=== PATIENT | female | born 2000 | race Hispanic/Latino ===

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

== ENCOUNTER → 2023-09-13 | Emergency (ER) | payer SELFPAY ==
[~2023-09-13] MED LIST: CEFTRIAXONE 1000 MG/VIAL ONE; MORPHINE 4 MG/ML SYR ONE; NA CHLORIDE 0.9% 1,000 ML ONE; ONDANSETRON 4 MG/2 ML VIAL ONE
[2023-09-13 19:09] LABS: Specific Gravity 1.016 (1.005-1.030)
[2023-09-13 19:12] LABS: Absolute Lymphocytes (CBC) 3.8 K/uL (0.7-4.9); Hematocrit 40.7 % (36.0-45.0); Lymphocytes % 28.6 % (15.3-44.8); MCV 91.5 fL (80-100); MPV 7.5 fL (7.6-11.3); Platelets 356 thou/uL (152-406); RBC Red Blood Cell Count 4.45 M/uL (3.86-4.86)
[2023-09-13 19:17] LABS: Albumin 3.3 g/dL (3.4-5.0); Bilirubin Total 0.3 mg/dL (0.2-1.0); Potassium 3.8 mEq/L (3.5-5.1); Specific Gravity 1.016 (1.005-1.030); Urine Bacteria 20-50 /HPF (<20); Urine Bilirubin NEGATIVE (Negative); Urine Blood 1+ (Negative); Urine Clarity Turbid (Clear); Urine Color Light-Yellow (Yellow); Urine Glucose NEGATIVE (Negative); Urine Mucus Slight /HPF (None Seen); Urine Protein NEGATIVE (Negative); Urine Urobilinogen Normal (Normal); Urine pH 6.5 (5.0-7.0)
--- NOTE | 2023-09-13 20:49 | RAD REPORT ---
EXAM DESCRIPTION: CT - Abdomen Pelvis W Contrast - 09/13/2023 7:51 pm CLINICAL HISTORY: RLQ;Abd pain COMPARISON: Chest Single View dated 03/30/2020 TECHNIQUE: Thin cut axial CT imaging of the abdomen and pelvis was performed following intravenous a dministration of 100 mL Isovue 300. Multiplanar reformats were generated and reviewed. All CT scans are performed using dose optimization technique as appropriate and may include automated exposure control or mA/KV adjustment according to patient size. FINDINGS: Confluent peripheral left lower lobe airspace opacities. The liver, spleen, adrenal glands, and pancreas show no suspicious findings. Gallbladder and biliary tree are also without suspicious finding. Symmetric renal function is seen with no hydronephrosis or suspicious renal mass. No dilated bowel loops or bowel wall thickening. Appendix is unremarkable. Interposition of the colon anterior to the liver. No free air, free fluid or inflammatory stranding. No hernia, mass or bulky l ymphadenopathy. The urinary bladder is without significant finding. No suspicious bony findings. IMPRESSION: Some confluent peripheral left lower lobe airspace opacities, concerning for pneumonia. No acute intra-abdominal process.
--- NOTE | 2023-09-13 20:56 | ER ---
Nurse's Notes [facility] Name: Bernie Lambert Age: 23 yrs Sex: Female : 2000 Arrival Date: 09/13/2023 Time: 17:37 Bed 5 Private MD: Diagnosis: UTI/ Urinary tract infection, site not specified;Pneumonia, unspecified organism;Constipation Presentation: 09/13 17:58 Chief complaint: Patient states: R sided abdominal pain since Sunday evening. ll1 Coronavirus screen: Vaccine status: Patient reports receiving the 2nd dose of the covid vaccine. Client denies travel out of the [place] in the last 14 days. At this time, the client does not indicate any symptoms associated with coronavirus-19. Ebola Screen: Patient denies travel to an Ebola-affected area in the 21 days before illness onset. Initial Sepsis Screen: Does the patient meet any 2 criteria? No. Patient's initial sepsis screen is negative. Does the patient have a suspected source of infection? Yes: Acute abdominal pain. Risk Assessment: Do you want to hurt yourself or someone else? Patient reports no desire to harm self or others. Onset of symptoms was September 11, 2023. 17:58 Method Of Arrival: Ambulatory ll1 17:58 Acuity: NENA 3 ll1 Triage Assessment: 17:59 General: Appears uncomfortable, Behavior is calm, cooperative, appropriate for age. ll1 Pain: Complains of pain in R abdomen Pain currently is 8 out of 10 on a pain scale. Quality of pain is described as sharp, throbbing, Pain began 2-3 days ago. GI: Reports lower abdominal pain, upper abdominal pain. Historical: - Allergies: 17:57 No Known Allergies; ll1 - PMHx: 17:57 None; ll1 - PSHx: 17:57 gastroschesis; ll1 - Immunization history:: Adult Immunizations up to date. - Social history:: Smoking status: Patient denies any tobacco usage or history of. Screenin:53 [facility] ED Fall Risk Assessment (Adult) History of falling in the last 3 months, kc6 including since admission No falls in past 3 months (0 pts) Confusion or Disorientation No (0 pts) Intoxicated or Sedated No (0 pts) Impaired Gait No (0 pts) Mobility Assist Device Used No (0 pt) Altered Elimination No (0 pt) Score/Fall Risk Level 0 - 2 = Low Risk. Abuse screen: Denies threats or abuse. Denies injuries from another. Nutritional screening: No deficits noted. Tuberculosis screening: No symptoms or risk factors identified. Assessment: 18:36 Reassessment: No changes from previously documented assessment. Patient and/or family ll1 updated on plan of care and expected duration. Pain level reassessed. 18:54 General: Appears in no apparent distress. uncomfortable, well groomed, well developed, kc6 Behavior is calm, cooperative, appropriate for age. Pain: Complains of pain in right upper quadrant and right lower quadrant. Neuro: Level of Consciousness is awake, alert, obeys commands, Oriented to person, place, time, situation, Appropriate for age. Cardiovascular: Capillary refill < 3 seconds. Respiratory: Airway is patent Trachea midline Respiratory effort is even, unlabored, Respiratory pattern is regular, symmetrical. GI: Abdomen is flat, non-distended, Bowel sounds present X 4 quads. Abd is soft X 4 quads Abdomen is tender to palpation in right upper quadrant and right lower quadrant Reports lower abdominal pain, upper abdominal pain. : No signs and/or symptoms were reported regarding the genitourinary system. EENT: No signs and/or symptoms were reported regarding the EENT system. Derm: No signs and/or symptoms reported regarding the dermatologic system. Skin is intact, is healthy with good turgor, Skin is pink, warm \T\ dry. Musculoskeletal: No signs and/or symptoms reported regarding the musculoskeletal system. Circulation, motion, and sensation intact. Capillary refill < 3 seconds, Range of motion: intact in all extremities. 20:16 Reassessment: Patient appears in no apparent distress at this time. Patient and/or km8 family updated on plan of care and expected duration. Pain level reassessed. Patient is alert, oriented x 3, equal unlabored respirations, skin warm/dry/pink. Patient states symptoms have improved. General: Appears in no apparent distress. comfortable, Behavior is calm, cooperative, appropriate for age. Pain: Complains of pain in abdomen Pain currently is 6 out of 10 on a pain scale. Neuro: Level of Consciousness is awake, alert, obeys commands, Oriented to person, place, time, situation. Cardiovascular: Denies chest pain, shortness of breath, Capillary refill < 3 seconds Patient's skin is warm and dry. Respiratory: Airway is patent Respiratory effort is even, unlabored, Respiratory pattern is regular, symmetrical. Vital Signs: 17:58 BP 124 / 92; Pulse 80; Resp 17; Temp 99; Pulse Ox 100% ; Weight 88.45 kg; Height 5 ft. ll1 5 in. ; Pain 8/10; 19:00 BP 107 / 49; Pulse 69; Resp 16; Pulse Ox 100% on R/A; km8 19:30 BP 95 / 58; Pulse 70; Resp 16; Pulse Ox 100% on R/A; km8 20:00 BP 108 / 81; Pulse 75; Resp 16; Pulse Ox 99% on R/A; km8 20:16 Pain 6/10; km8 20:30 BP 126 / 92; Pulse 73; Resp 16; Pulse Ox 99% on R/A; km8 21:00 BP 136 / 45; Pulse 79; Resp 16; Pulse Ox 100% on R/A; km8 17:58 Body Mass Index 32.45 (88.45 kg, 165.1 cm) ll1 17:58 Pain Scale: Adult ll1 20:16 Pain Scale: Adult km8 ED Course: 17:38 Patient arrived in ED. rg4 17:39 Samina Christianson PA-C is PHCP. sb4 17:39 Jeanmarie Aguero MD is Attending Physician. sb4 17:43 Arm band placed on. ll1 17:59 Triage completed. ll1 18:36 Patient placed in an exam room, on a stretcher. ll1 18:53 Dilma Portillo RN is Primary Nurse. kc6 18:53 Inserted saline lock: 20 gauge in right wrist, using aseptic technique. Blood kc6 collected. Patient maintains SpO2 saturation greater than 95% on room air. 18:54 Patient has correct armband on for positive identification. Bed in low position. Call kc6 light in reach. Side rails up X 1. Adult w/ patient. Client placed on continuous cardiac and pulse oximetry monitoring. NIBP monitoring applied. 19:06 Report given to CLARA Escobedo \T\ CLARA Coppola. kc6 19:09 Primary Nurse role handed off by Dilma Portillo RN as6 19:53 CT Abd/Pelvis - IV Contrast Only In Process Unspecified. EDMS 21:21 Provided Education on: d/c teaching. km8 21:21 No provider procedures requiring assistance completed. IV discontinued, intact, km8 bleeding controlled, No redness/swelling at site. Pressure dressing applied. Administered Medications: 18:53 Drug: NS 0.9% IV 1000 ml IV at 1 bolus Per protocol; 1000 mL bolus Route: IV; Rate: 1 kc6 bolus; Site: right wrist; 20:15 Follow up: IV Status: Completed infusion; IV Intake: 1000ml km8 18:53 Drug: Ondansetron IVP 4 mg IVP once; over 2 minutes Route: IVP; Site: right wrist; kc6 20:16 Follow up: Response: No adverse reaction; Nausea is decreased km8 18:53 Drug: morphine IVP or IV 4 mg IVP once over 4 mins Route: IVP; Infused Over: 4 mins; kc6 Site: right wrist; 20:16 Follow up: Pain 6/10 Adult; Response: Pain is decreased; RASS: Alert and Calm (0) km8 21:09 Drug: Rocephin IV 1 grams IV at calculated rate once; Given slow IV push per pharmacy km8 instructions Route: IV; Rate: calculated rate; Site: right wrist; 21:20 Follow up: IV Status: Completed infusion km8 Medication: 21:21 VIS not applicable for this client. km8 Intake: 20:15 IV: 1000ml; Total: 1000ml. km8 Outcome: 20:56 Discharge ordered by MD. sb4 21:31 Discharged to home ambulatory, with family, km8 21:31 Condition: good 21:31 Discharge instructions given to patient, Instructed on discharge instructions, follow up and referral plans. medication usage, Demonstrated understanding of instructions, follow-up care, medications, Prescriptions given X 2, 21:32 Patient left the ED. km8 Signatures: Dispatcher [employer] EDMercy Abdalla Lynsay RN RN ll1 Kin Wilkins RN RN [email or web address] Dilma Portillo RN RN [id number] Samina Christianson, PA-C PAJasonC Fanny Samuels RN RN km8
--- NOTE | 2023-09-13 20:56 | EDPHYS ---
Physician Documentation [facility] Name: Bernie Lambert Age: 23 yrs Sex: Female : 2000 Arrival Date: 09/13/2023 Time: 17:37 Bed 5 Private MD: ED Physician Jeanmarie Aguero HPI: 09/13 18:59 This 23 yrs old Female presents to ER via Ambulatory with complaints of sb4 Abdominal Pain. 18:59 The patient presents with abdominal pain right lower quadrant. Onset: The sb4 symptoms/episode began/occurred 2 day(s) ago. The symptoms do not radiate. Associated signs and symptoms: none. The symptoms are described as sharp, stabbing. Modifying factors: The symptoms are alleviated by nothing, the symptoms are aggravated by pressure, touching the area. The patient has not experienced similar symptoms in the past. The patient has not recently seen a physician. Historical: - Allergies: 17:57 No Known Allergies; ll1 - PMHx: 17:57 None; ll1 - PSHx: 17:57 gastroschesis; ll1 - Immunization history:: Adult Immunizations up to date. - Social history:: Smoking status: Patient denies any tobacco usage or history of. ROS: 18:59 Constitutional: Negative for fever, chills, and weight loss, sb4 18:59 Abdomen/GI: Positive for abdominal pain, 18:59 All other systems are negative, Exam: 18:59 Constitutional: This is a well developed, well nourished patient who is awake, alert, sb4 and in no acute distress. Head/Face: Normocephalic, atraumatic. Eyes: Extra-ocular motions intact. Periorbital areas with no swelling, redness, or edema. ENT: Mucous membranes moist. Cardiovascular: Regular rate and rhythm with a normal S1 and S2. Respiratory: Lungs have equal breath sounds bilaterally, clear to auscultation and percussion. No rales, rhonchi or wheezes noted. No increased work of breathing, no retractions or nasal flaring. Skin: Warm, dry with normal turgor. Normal color with no rashes, no lesions, and no evidence of cellulitis. MS/ Extremity: Pulses equal, no cyanosis. Neurovascular intact. Full, normal range of motion. 18:59 Abdomen/GI: Inspection: abdomen appears normal, Bowel sounds: normal, Palpation: soft, in all quadrants, moderate abdominal tenderness, in the right lower quadrant, rebound tenderness, is appreciated in the right lower quadrant, involuntary guarding, is elicited in the right lower quadrant, Vital Signs: 17:58 BP 124 / 92; Pulse 80; Resp 17; Temp 99; Pulse Ox 100% ; Weight 88.45 kg; Height 5 ft. ll1 5 in. ; Pain 8/10; 19:00 BP 107 / 49; Pulse 69; Resp 16; Pulse Ox 100% on R/A; km8 19:30 BP 95 / 58; Pulse 70; Resp 16; Pulse Ox 100% on R/A; km8 20:00 BP 108 / 81; Pulse 75; Resp 16; Pulse Ox 99% on R/A; km8 20:16 Pain 6/10; km8 20:30 BP 126 / 92; Pulse 73; Resp 16; Pulse Ox 99% on R/A; km8 21:00 BP 136 / 45; Pulse 79; Resp 16; Pulse Ox 100% on R/A; km8 17:58 Body Mass Index 32.45 (88.45 kg, 165.1 cm) ll1 17:58 Pain Scale: Adult ll1 20:16 Pain Scale: Adult km8 MDM: 17:51 Patient medically screened. sb4 18:59 Differential diagnosis: appendicitis, cholecystitis, Cholelithiasis, diverticulitis, sb4 Dysmenorrhea, Ectopic , non-specific abd pain, Peptic Ulcer Disease, Pyelonephritis, Ureterolithiasis, urinary tract infection. 20:55 Data reviewed: vital signs, nurses notes, lab test result(s), radiologic studies, I sb4 have discussed the patient's presentation/case with the attending Emergency Department Physician; and as a result, I will discharge patient. Historians other than the Patient: Parent: MOTHER. Counseling: I had a detailed discussion with the patient and/or guardian regarding the historical points, exam findings, and any diagnostic results supporting the discharge/admit diagnosis, lab results, radiology results, to return to the emergency department if symptoms worsen or persist or if there are any questions or concerns that arise at home. 09/13 18:00 Order name: CBC with Diff; Complete Time: : sb4 09/13 18:00 Order name: CMP; Complete Time: 19:18 sb4 09/13 18:00 Order name: Lipase; Complete Time: 19:18 sb4 09/13 18:00 Order name: Test, Urine; Complete Time: 19:10 sb4 09/13 18:00 Order name: Urinalysis w/ reflexes; Complete Time: 19:18 sb4 09/13 19:20 Order name: Urine Culture EDIN 09/13 18:00 Order name: CT Abd/Pelvis - IV Contrast Only; Complete Time: 20:51 sb4 09/13 18:00 Order name: IV Saline Lock; Complete Time: 18:53 sb4 09/13 18:00 Order name: Labs collected and sent; Complete Time: 18:53 sb4 Administered Medications: 18:53 Drug: NS 0.9% IV 1000 ml IV at 1 bolus Per protocol; 1000 mL bolus Route: IV; Rate: 1 kc6 bolus; Site: right wrist; 20:15 Follow up: IV Status: Completed infusion; IV Intake: 1000ml [facility] 18:53 Drug: Ondansetron IVP 4 mg IVP once; over 2 minutes Route: IVP; Site: right wrist; kc6 20:16 Follow up: Response: No adverse reaction; Nausea is decreased [facility] 18:53 Drug: morphine IVP or IV 4 mg IVP once over 4 mins Route: IVP; Infused Over: 4 mins; 6 Site: right wrist; 20:16 Follow up: Pain 6/10 Adult; Response: Pain is decreased; RASS: Alert and Calm (0) [facility] 21:09 Drug: Rocephin IV 1 grams IV at calculated rate once; Given slow IV push per pharmacy km8 instructions Route: IV; Rate: calculated rate; Site: right wrist; 21:20 Follow up: IV Status: Completed infusion 8 Disposition: 19:21 Co-signature as Attending Physician, Jeanmarie Aguero MD I reviewed the patient's care rt provided by the Advanced Practice Provider and agree with the diagnosis and treatment plan. Disposition Summary: 09/13/23 20:56 Discharge Ordered Notes: Location: Home sb4 Problem: new sb4 Symptoms: have improved sb4 Condition: Stable sb4 Diagnosis - UTI/ Urinary tract infection, site not specified sb4 - Pneumonia, unspecified organism sb4 - Constipation sb4 Followup: sb4 - With: Emergency Department - When: As needed - Reason: Trouble breathing, Worsening of condition Discharge Instructions: - Discharge Summary Sheet sb4 - Community-Acquired Pneumonia, Adult sb4 - Constipation, Adult, [id number] sb4 - Urinary Tract Infection, Adult, [id number] sb4 Forms: - Medication Reconciliation Form sb4 - Thank You Letter sb4 - Antibiotic Education sb4 - Prescription Opioid Use sb4 - Patient Portal Instructions sb4 - Leadership Thank You Letter sb4 Prescriptions: - azithromycin 250 mg Oral tablet - take 1 dose pack ORAL route as directed on dose pack For 250 mg dose pack: take sb4 500 mg today (day 1), then 250 mg for 4 days (days 2-5); 1 Pack; Refills: 0, Product Selection Permitted - cefpodoxime 100 mg Oral Tablet - take 1 tablet ORAL route every 12 hours for 10 days take with food; 20 tablet; sb4 Refills: 0, Product Selection Permitted Signatures: Dispatcher [employer] Brendan Carmona RN RN ll1 Dilma Portillo RN RN kc6 Samina Christianson, PAAnnmarie PAAnnmarie sb4 Jeanmarie Aguero MD MD rt Fanny Aguilar RN RN km8
[2023-09-14 00:50] VITALS: TEMP 99; O2SAT 100
[2023-09-14 00:56] VITALS: BP 136/45
== END ==
LOC: ER 17:37
DX: N39.0 Urinary tract infection, site not specified (principal); K59.00 Constipation, unspecified; J18.9 Pneumonia, unspecified organism
CPT/HCPCS: 36415; 74177; 80053; 81001; 81025; 83690; 85025; 87077; 87086; 87088; 87186; 96361; 96374; 96375; 99285; J0696; J2405; J7030; Q9967

== ENCOUNTER 2024-12-18 13:03 | Emergency (ER) | payer BC ==
[2024-12-18] MEDS ORDERED: NA CHLORIDE 0.9% 1,000 ML ONE (14:03)
[2024-12-18] MEDS ORDERED: ACETAMINOPHEN 500 MG TAB ONE (14:03)
--- NOTE | 2024-12-18 14:24 | RAD REPORT ---
EXAM:Extremity Venous Uni Ltd HISTORY: Right leg pain TECHNIQUE: Sonographic evaluation right lower extremity performed.Grayscale, color and spectral fco sis performed on all vessels COMPARISON: None. FINDINGS: Right common femoral, superficial femoral, greater saphenous, popliteal and posterior tibial veins ar e compressible and demonstrate augmentation. Doppler demonstrates good flow. IMPRESSION: No evidence of deep venous thrombosis involving the right lower extremity.
[2024-12-18 14:25] LABS: Absolute Eosinophils 0.3 K/uL (0-0.5); Absolute Lymphocytes (CBC) 2.2 K/uL (0.7-4.9); Absolute Monocytes 0.8 K/uL (0.1-1.3); Absolute Neutrophil 8.3 K/uL (1.8-8.0); Basophils % 0.3 % (0-1.3); Eosinophils % 2.4 % (0-4.4); Hematocrit 38.3 % (36.0-45.0); Lymphocytes % 18.7 % (15.3-44.8); MCH 30.6 pg (27.0-35.0); MCHC 34.1 g/dL (32.0-36.0); MCV 89.7 fL (80-100); MPV 8.2 fL (7.6-11.3); Monocytes % 6.5 % (3.3-12.3); Neutrophils % 72.1 % (41.7-73.7); Platelets 303 thou/uL (152-406); RBC Red Blood Cell Count 4.27 M/uL (3.86-4.86); Red Cell Distribution Width 13.4 % (12.1-15.2)
[2024-12-18 14:26] LABS: Specific Gravity 1.023 (1.005-1.030); Urine Bilirubin NEGATIVE (Negative); Urine Blood Negative (Negative); Urine Clarity Clear (Clear); Urine Color Light-Yellow (Yellow); Urine Glucose NEGATIVE (Negative); Urine Ketones NEGATIVE (Negative); Urine Microscopic Reflex YN NO UMIC; Urine Nitrite NEGATIVE (Negative); Urine Protein NEGATIVE (Negative); Urine Urobilinogen Normal (Normal)
[2024-12-18 14:28] LABS: Specific Gravity 1.023 (1.005-1.030)
--- NOTE | 2024-12-18 14:29 | RAD REPORT ---
EXAM:OB Limited CLINICAL HISTORY: with abdominal pain TECHNIQUE: Limited OB ultrasound performed FINDINGS: Single live intrauterine in transverse presentation. Cardiac activity 152 bpm. Cervix 4.5 cm. Normal amniotic fluid. The placenta is anterior. No subchorionic/retroplacental bleed. Femur length 3.3 cm 20 weeks 3 days IMPRESSION: Single live intrauterine in transverse presentation. No significant abnormality seen on this limited examination. If a survey is desired it can be performed on a nonemergent basis.
[2024-12-18] MEDS ORDERED: DICYCLOMINE HCL 20 MG/2 ML AMP IM ONE (14:45)
[2024-12-18 15:14] LABS: Albumin 3.3 g/dL (3.4-5.0); Albumin/Globulin Ratio 0.7 (1.1-1.8); Anion Gap 10.7 mEq/L (5.0-15.0); Bilirubin Total 0.3 mg/dL (0.2-1.0); Globulin 4.6 g/dL (2.3-3.5); Potassium 3.7 mEq/L (3.5-5.1); Protein, Total 7.9 g/dL (6.4-8.2)
--- NOTE | 2024-12-18 17:45 | RAD REPORT ---
EXAMINATION: MRI PELVIS WITHOUT FEMALE CLINICAL INDICATION: Female 24 years RLQ TECHNIQUE: Limited sequence imaging of the pelvis was performed without gadolinium-based IV contrast to evaluate for acute appendicitis in a patient. Unless otherwise specified, incidental findings do not require dedicated imaging follow-up. [id number]. COMPARISON: No prior exam. FINDINGS: Limited exam to evaluate for appendicitis. Note that this exam does not evaluate the fetus. The cecum is present in the right upper quadrant. The patient has a redundant colon. The appendix is visualized and within normal limits. Trace pelvic free fluid is identified. The bowel is nondilated. IMPRESSION: No evidence of appendicitis. Note that the patient has a redundant colon with cecum and appendix in t he right upper quadrant.
--- NOTE | 2024-12-18 18:13 | EDPHYS ---
Physician Documentation [facility] Name: Bernie Lambert Age: 24 yrs Sex: Female : 2000 Arrival Date: 12/18/2024 Time: 13:03 Bed 23 Private MD: ED Physician Yong Olmstead HPI: 12/18 13:20 This 24 yrs old Female presents to ER via Ambulatory with complaints of 18 wks cp , Abdominal Pain. 13:20 The patient presents with abdominal pain right lower quadrant, right groin. cp 13:20 Onset: The symptoms/episode began/occurred 1 week(s) ago. The symptoms radiate to right cp leg. Associated signs and symptoms: Pertinent negatives: constipation, diarrhea, fever, vomiting, injury, vaginal bleeding. The symptoms are described as constant. Severity of pain: in the emergency department the pain is unchanged despite home interventions. Patient reports she is approximately 18 weeks . NET TECHNICAL ARCHITECT: 14:15 1, Full Term 0, Premature 0, 0, Living 0, Verified db Historical: - Allergies: 13:19 No Known Allergies; ll1 - PMHx: 13:19 None; ll1 - PSHx: 13:10 gastroschesis; ll1 - Immunization history:: Adult Immunizations up to date. - Infectious Disease History:: Denies. - Social history:: Smoking status: Patient denies any tobacco usage or history of. ROS: 13:25 Constitutional: Negative for body aches, chills, fever, poor PO intake, cp 13:25 Eyes: Negative for injury, pain, redness, and discharge, cp 13:25 Cardiovascular: Negative for chest pain, 13:25 Respiratory: Negative for cough, shortness of breath, wheezing, 13:25 Abdomen/GI: Positive for abdominal pain, of the right lower abdomen and right adnexa and right groin, Negative for vomiting, diarrhea, constipation, 13:25 : Negative for urinary symptoms, hematuria, flank pain, vaginal bleeding, vaginal discharge, 13:25 Skin: Negative for rash, 13:25 Neuro: Negative for dizziness, headache, weakness, 13:25 All other systems are negative, Exam: 13:30 Constitutional: The patient appears in no acute distress, alert, awake, non-toxic, well cp developed, well nourished, uncomfortable, 13:30 Head/Face: Normocephalic, atraumatic. cp 13:30 Eyes: Periorbital structures: appear normal, Conjunctiva: normal, no exudate, no injection, Sclera: no appreciated abnormality, Lids and lashes: appear normal, bilaterally, 13:30 ENT: External ear(s): are unremarkable, Nose: is normal, Mouth: Lips: moist, Oral mucosa: moist, Posterior pharynx: Airway: no evidence of obstruction, patent, 13:30 Chest/axilla: Inspection: normal, 13:30 Cardiovascular: Rate: normal, Rhythm: regular, 13:30 Respiratory: the patient does not display signs of respiratory distress, Respirations: normal, no use of accessory muscles, no retractions, labored breathing, is not present, Breath sounds: are clear throughout, no decreased breath sounds, no stridor, no wheezing, 13:30 Abdomen/GI: Inspection: abdomen appears normal, Bowel sounds: active, all quadrants, Palpation: soft, in all quadrants, moderate abdominal tenderness, in the right adnexal area and right groin, mild tenderness right lower quadrant abdomen, rebound tenderness, is not appreciated, involuntary guarding, is not appreciated, 13:30 Back: pain, is absent, ROM is normal, 13:30 Skin: no rash present. 13:30 Neuro: Gait: is steady, Vital Signs: 13:17 BP 140 / 70; Pulse 80; Resp 18; Temp 98.7; Pulse Ox 100% ; Weight 107.95 kg; Height 5 ll1 ft. 5 in. ; Pain 8/10; 14:07 BP 124 / 71; Pulse 79; Resp 16; Pulse Ox 100% on R/A; db 14:30 BP 125 / 65; Pulse 76; Resp 16; Pulse Ox 95% on R/A; db 16:40 BP 126 / 51; Pulse 66; Resp 16; Pulse Ox 100% on R/A; db 17:40 BP 145 / 88; Pulse 78; Resp 16; Pulse Ox 100% on R/A; db 18:00 BP 123 / 97; Pulse 75; Resp 16; Pulse Ox 100% on R/A; db 13:17 Body Mass Index 39.60 (107.95 kg, 165.1 cm) ll1 13:17 Pain Scale: Adult ll1 MDM: 13:14 Medical Screening Exam initiated cp 14:00 Differential diagnosis: appendicitis, non-specific abd pain, Ovarian Torsion, Pelvic cp Inflammatory Disease, Pyelonephritis, Tubal Ovarian Abcess, Ureterolithiasis, urinary tract infection. 18:11 Data reviewed: vital signs, nurses notes, lab test result(s), radiologic studies, MRI, cp ultrasound, I have discussed the patient's presentation/case with the attending Emergency Department Physician; and as a result, I will discharge patient. 18:11 I considered the following discharge prescriptions or medication management in the emergency department Medications were administered in the Emergency Department. See MAR. Counseling: I had a detailed discussion with the patient and/or guardian regarding the historical points, exam findings, and any diagnostic results supporting the discharge/admit diagnosis, lab results, radiology results, to return to the emergency department if symptoms worsen or persist or if there are any questions or concerns that arise at home. Response to treatment: the patient's symptoms have mildly improved after treatment, and as a result, I will discharge patient. Special discussion: Based on the patient's Hx, exam, and Dx evaluation, there is no indication for emergent surgery or inpatient Tx. It is understood by the patient/guardian that if the Sx's persist or worsen they need to return immediately for re-evaluation. 12/18 13:19 Order name: Urinalysis w/ reflexes; Complete Time: 14:34 cp 12/18 13:35 Order name: CBC with Diff; Complete Time: 14:34 cp 12/18 14:34 Interpretation: Normal except: WBC 11.50; NEUT A 8.3. 12/18 13:35 Order name: CMP; Complete Time: 15:16 12/18 15:16 Interpretation: Normal except: CL 108; ALB 3.3; GLOB 4.6; A/G 0.7. 12/18 13:35 Order name: Lipase; Complete Time: 15:16 cp 12/18 13:35 Order name: Test, Urine; Complete Time: 14:34 cp 12/18 13:35 Order name: Quantitative Hcg; Complete Time: 15:16 cp 12/18 15:16 Interpretation: Reviewed. 12/18 13:35 Order name: US Extremity Venous Unilateral Ltd; Complete Time: 14:34 cp 12/18 14:26 Order name: OB Limited; Complete Time: 14:34 EDMS 12/18 14:35 Interpretation: Report reviewed. cp 12/18 15:02 Order name: Pelvis Wo Cont; Complete Time: 17:52 EDMS 12/18 17:52 Interpretation: Report reviewed. cp 12/18 13:35 Order name: IV Saline Lock; Complete Time: 14:22 cp 12/18 13:35 Order name: Labs collected and sent; Complete Time: 14:22 cp Administered Medications: 14:16 Drug: NS 0.9% IV 1000 ml IV at 1 bolus Per protocol; to be given as a bolus over 60 db minutes Route: IV; Rate: 1 bolus; Site: right wrist; 18:07 Follow up: Response: No adverse reaction; IV Status: Completed infusion; IV Intake: db 1000ml 14:16 Drug: Acetaminophen PO 1000 mg PO once Route: PO; db 18:07 Follow up: Response: No adverse reaction; Pain is decreased db 14:57 Drug: Dicyclomine IM 20 mg IM once Route: IM; Site: right deltoid; db 18:06 Follow up: Response: No adverse reaction; Pain is decreased db Disposition: 12/19 09:04 Co-signature as Attending Physician, Yong Olmstead MD I reviewed the patient's care rn provided by the Advanced Practice Provider and agree with the diagnosis and treatment plan. Disposition Summary: 12/18/24 18:12 Discharge Ordered Notes: Location: Home cp Problem: new cp Symptoms: have improved cp Condition: Stable cp Diagnosis - Lower abdominal pain, unspecified cp - Pain in right leg cp Followup: cp - With: Private Physician - When: 2 - 3 days - Reason: Recheck today's complaints Discharge Instructions: - Discharge Summary Sheet cp Forms: - Work release form cp - Medication Reconciliation Form cp - Antibiotic Education cp - Prescription Opioid Use cp - Patient Portal Instructions cp - Leadership Thank You Letter cp Signatures: Dispatcher [employer] Yong Zamarripa MD MD rn Page, Corey, PA PA cp Brendan Loo RN RN ll1 Melina Lai RN RN db Corrections: (The following items were deleted from the chart) 12/18 13:36 13:36 CBC+H.LAB.BRZ ordered. EDMS EDMS 13:36 13:36 COMPREHENSIVE METABOLIC PANEL+C.LAB.BRZ ordered. EDMS EDMS 13:36 13:36 LIPASE+C.LAB.BRZ ordered. EDMS EDMS 13:36 13:36 Test, Urine+UC.LAB.BRZ ordered. EDMS EDMS 13:36 13:36 QUANTITATIVE HCG+C.LAB.BRZ ordered. EDMS EDMS 13:36 13:36 Extremity Venous Uni Ltd+US.RAD.BRZ ordered. EDMS EDMS 14:25 13:36 OB Complete+US.RAD.BRZ ordered. EDMS EDMS 17:36 15:02 Abdomen Wo Cont ordered. EDMS EDMS
--- NOTE | 2024-12-18 18:13 | ER ---
Nurse's Notes [facility] Name: Bernie Lambert Age: 24 yrs Sex: Female : 2000 Arrival Date: 12/18/2024 Time: 13:03 Bed 23 Private MD: Diagnosis: Lower abdominal pain, unspecified;Pain in right leg Presentation: 12/18 13:17 Chief complaint: Patient states: 18 weeks . R sided abdominal pains off/on for ll1 2 weeks. Told her OB, just isn't getting better with rest and Tylenol. Coronavirus screen: Client denies travel out of the [place] in the last 14 days. At this time, the client does not indicate any symptoms associated with coronavirus-19. Ebola Screen: Patient denies travel to an Ebola-affected area in the 21 days before illness onset. Initial Sepsis Screen: Does the patient meet any 2 criteria? No. Patient's initial sepsis screen is negative. Does the patient have a suspected source of infection? No. Patient's initial sepsis screen is negative. Risk Assessment: Do you want to hurt yourself or someone else? Patient reports no desire to harm self or others. Onset of symptoms was December 05, 2024. 13:17 Method Of Arrival: Ambulatory ll1 13:17 Acuity: NENA 3 ll1 Triage Assessment: 13:19 General: Appears uncomfortable, Behavior is calm, cooperative, appropriate for age. ll1 Pain: Complains of pain in abdomen Quality of pain is described as aching. GI: Reports lower abdominal pain. OB GYN: 14:15 1, Full Term 0, Premature 0, 0, Living 0, Verified db Historical: - Allergies: 13:19 No Known Allergies; ll1 - PMHx: 13:19 None; ll1 - PSHx: 13:10 gastroschesis; ll1 - Immunization history:: Adult Immunizations up to date. - Infectious Disease History:: Denies. - Social history:: Smoking status: Patient denies any tobacco usage or history of. Screenin:15 [facility] ED Fall Risk Assessment (Adult) History of falling in the last 3 months, db including since admission No falls in past 3 months (0 pts) Confusion or Disorientation No (0 pts) Intoxicated or Sedated No (0 pts) Impaired Gait No (0 pts) Mobility Assist Device Used No (0 pt) Altered Elimination No (0 pt) Score/Fall Risk Level 0 - 2 = Low Risk Oriented to surroundings, Maintained a safe environment. Abuse screen: Denies threats or abuse. Denies injuries from another. Nutritional screening: No deficits noted. Tuberculosis screening: No symptoms or risk factors identified. Assessment: 14:15 Reassessment: Patient appears in no apparent distress at this time. Patient and/or db family updated on plan of care and expected duration. Pain level reassessed. Patient is alert, oriented x 3, equal unlabored respirations, skin warm/dry/pink. General: Appears in no apparent distress. comfortable, Behavior is calm, cooperative. Pain: Complains of pain in pelvis. Neuro: Level of Consciousness is awake, alert, obeys commands, Oriented to person, place, time, situation. Cardiovascular: Capillary refill < 3 seconds. 15:35 Reassessment: Patient appears in no apparent distress at this time. Patient and/or db family updated on plan of care and expected duration. Pain level reassessed. Patient is alert, oriented x 3, equal unlabored respirations, skin warm/dry/pink. Patient states feeling better. Patient states symptoms have improved. 17:08 Reassessment: Patient appears in no apparent distress at this time. Patient and/or db family updated on plan of care and expected duration. Pain level reassessed. Patient is alert, oriented x 3, equal unlabored respirations, skin warm/dry/pink. 18:06 Reassessment: Patient appears in no apparent distress at this time. Patient and/or db family updated on plan of care and expected duration. Pain level reassessed. Patient is alert, oriented x 3, equal unlabored respirations, skin warm/dry/pink. Patient denies pain at this time. Patient states feeling better. Respiratory: Airway is patent Respiratory effort is even, unlabored, Respiratory pattern is regular, symmetrical. 18:23 Reassessment: Patient appears in no apparent distress at this time. Patient and/or db family updated on plan of care and expected duration. Pain level reassessed. Patient is alert, oriented x 3, equal unlabored respirations, skin warm/dry/pink. Patient states feeling better. Vital Signs: 13:17 BP 140 / 70; Pulse 80; Resp 18; Temp 98.7; Pulse Ox 100% ; Weight 107.95 kg; Height 5 ll1 ft. 5 in. ; Pain 8/10; 14:07 BP 124 / 71; Pulse 79; Resp 16; Pulse Ox 100% on R/A; db 14:30 BP 125 / 65; Pulse 76; Resp 16; Pulse Ox 95% on R/A; db 16:40 BP 126 / 51; Pulse 66; Resp 16; Pulse Ox 100% on R/A; db 17:40 BP 145 / 88; Pulse 78; Resp 16; Pulse Ox 100% on R/A; db 18:00 BP 123 / 97; Pulse 75; Resp 16; Pulse Ox 100% on R/A; db 13:17 Body Mass Index 39.60 (107.95 kg, 165.1 cm) ll1 13:17 Pain Scale: Adult ll1 ED Course: 13:05 Patient arrived in ED. mr 13:08 Zackery Diaz PA is PHCP. cp 13:08 Yong Olmstead MD is Attending Physician. cp 13:10 Arm band placed on. ll1 13:19 Triage completed. ll1 13:56 Melina Lai, RN is Primary Nurse. db 14:02 US Extremity Venous Unilateral Ltd In Process Unspecified. EDMS 14:15 Patient has correct armband on for positive identification. Bed in low position. Call db light in reach. Side rails up X 1. Pulse ox on. NIBP on. Warm blanket given. Pillow given. 14:15 Initial lab(s) drawn, by me, sent to lab. Urine collected: clean catch specimen, clear. db Inserted saline lock: 20 gauge in right wrist, using aseptic technique. Blood collected. Flushed with 10 mL NS. 14:26 OB Limited In Process Unspecified. EDMS 15:05 MRI SIGNED AND ON CHART. db 15:10 No provider procedures requiring assistance completed. ss 15:11 Provided Education on: MRI ABD/PELVIS with consent signed by patient at this ss time. . 17:35 Pelvis Wo Cont In Process Unspecified. EDMS 17:40 Patient moved back from MRI. db 18:23 IV discontinued, intact, bleeding controlled, No redness/swelling at site. db Administered Medications: 14:16 Drug: NS 0.9% IV 1000 ml IV at 1 bolus Per protocol; to be given as a bolus over 60 db minutes Route: IV; Rate: 1 bolus; Site: right wrist; 18:07 Follow up: Response: No adverse reaction; IV Status: Completed infusion; IV Intake: db 1000ml 14:16 Drug: Acetaminophen PO 1000 mg PO once Route: PO; db 18:07 Follow up: Response: No adverse reaction; Pain is decreased db 14:57 Drug: Dicyclomine IM 20 mg IM once Route: IM; Site: right deltoid; db 18:06 Follow up: Response: No adverse reaction; Pain is decreased db Medication: 14:15 VIS not applicable for this client. db Intake: 18:07 IV: 1000ml; Total: 1000ml. db Outcome: 18:12 Discharge ordered by MD. cp 18:23 Discharged to home ambulatory, with family, db 18:23 Condition: stable 18:23 Discharge instructions given to patient, family, Instructed on discharge instructions, follow up and referral plans. 18:24 Patient left the ED. db Signatures: Dispatcher [employer] EDNE Janeth Moore, Reg Reg mr Antonella Steele, RN RN ss Zackery Diaz PA PA cp Brendan Loo, CLARA RN ll1 Melina Lai RN RN db Corrections: (The following items were deleted from the chart) 14:23 14:15 Initial lab(s) drawn, by me, sent to lab. Urine collected: clean catch specimen, db db 14:25 14:02 In radiology for OB Complete+US.RAD.BRZ. [facility] ED[facility]
[2024-12-18 18:31] VITALS: TEMP 98.7
[2024-12-18 18:35] VITALS: O2SAT 100
[2024-12-18 18:39] VITALS: BP 123/97
== END 2024-12-18 18:24 | disposition home or self-care (01) ==
LOC: ER 13:03
DX: O26.892 Other specified pregnancy related conditions, second trimester (principal); Z3A.18 18 weeks gestation of pregnancy
CPT/HCPCS: 96361; 85025; 36415; 81025; 84702; 81003; 83690; 80053; 93971; 72195; 76815; 96360; 96372; 99285; J0500; J7030